=== PATIENT | male | born 1990 | race Caucasian/White ===

== ENCOUNTER 2017-05-18 18:36 | Emergency (ER) | payer MEDICAID ==
[2017-05-18] MEDS ORDERED: Diphtheria,Pertussis(Acell),Tetanus Vaccine 0.5 ML SDV IM ONE (19:11)
--- NOTE | 2017-05-18 19:15 | EDM.PDOC ---
ED HPI GENERAL MEDICAL PROBLEM - General Chief Complaint: Laceration Stated Complaint: CUT INDEX FINGER ON LEFT HAND Time Seen by Provider: 05/18/17 19:02 Source of Information: Reports: Patient History Limitations: Reports: No Limitations - History of Present Illness INITIAL COMMENTS - FREE TEXT/NARRATIVE: Patient presents to the E.D. complaining of laceration to the tip of the left index finger on the palmar side. States he cut it on a table saw yesterday. Bandaid in place all day. Decided today to be evaluated in the E.D. to see if sutures are required. Does not believe tetanus status is up to date. Pain is minimal. Denies any n/t. He has no other complaints. - Related Data Allergies Allergy/AdvReac Type Severity Reaction Status Date / Time Penicillins Allergy Cannot Verified 05/18/17 18:47 Remember Home Meds: Home Meds Citalopram [Citalopram HBr] 20 mg PO DAILY 05/18/17 [History] buPROPion [Wellbutrin] 75 mg PO BEDTIME 05/18/17 [History] Past Medical History HEENT History: Reports: Impaired Vision Other HEENT History: wears corrective lenses Psychiatric History: Reports: Anxiety, Depression Social & Family History - Tobacco Use Smoking Status *Q: Current Every Day Smoker Years of Tobacco use: 5 Packs/Tins Daily: 1 Used Tobacco, but Quit: No Second Hand Smoke Exposure: No - Caffeine Use Caffeine Use: Reports: Coffee - Recreational Drug Use Recreational Drug Use: No ED ROS GENERAL - Review of Systems Review Of Systems: ROS reveals no pertinent complaints other than HPI. ED EXAM, SKIN/RASH Exam: See Below Exam Limited By: No Limitations General Appearance: Alert, WD/WN, No Apparent Distress Ears: Hearing Grossly Normal Nose: Normal Inspection Throat/Mouth: Normal Voice, No Airway Compromise Neck: Normal Inspection, Supple Respiratory/Chest: No Respiratory Distress, No Accessory Muscle Use Cardiovascular: Normal Peripheral Pulses, Regular Rate, Rhythm Peripheral Pulses: 4+: Radial (L) Neurological: Alert, Oriented, CN II-XII Intact, Normal Cognition, No Motor/ Sensory Deficits Psychiatric: Normal Affect, Normal Mood Skin: Warm, Dry, Normal Color Course - Vital Signs Last Recorded V/S: Last Vital Signs Temp 97.8 F 05/18/17 18:45 Pulse 87 05/18/17 18:45 Resp 18 05/18/17 18:45 BP 121/76 05/18/17 18:45 Pulse Ox 100 05/18/17 18:45 - Orders/Labs/Meds Orders: Active Orders 24 hr Category Date Time Status Vaccines to be Administered [RC] PER UNIT ROUTINE Care 05/18/17 19:11 Active Fingers Second Digit Lt F1 [CR] Stat Exams 05/18/17 19:07 Taken Meds: Medications Discontinued Medications Generic Name Dose Route Start Last Admin Trade Name Keaton PRN Reason Stop Dose Admin Diphtheria/Tetanus/Acell Pertussis 0.5 ml 05/18/17 19:11 05/18/17 19:40 Adacel IM 05/18/17 19:12 0.5 ml .ONCE ONE Administration - Re-Assessments/Exams Free Text/Narrative Re-Assessment/Exam: Ordered x-ray of the left index finger and adacel IM. X-ray of the finger reviewed: no apparent bony involvement noted. No closure required. Will have to heel by secondary intentions. Will discharge patient home after dressing applied. Departure - Departure Time of Disposition: 19:54 Disposition: Home, Self-Care 01 Condition: Good Clinical Impression: Laceration of finger Qualifiers: Encounter type: initial encounter Finger: index finger Damage to nail status: without damage Foreign body presence: without foreign body Laterality: left Qualified Code(s): S61.211A - Laceration without foreign body of left index finger without damage to nail, initial encounter - Discharge Information Instructions: Laceration Care, Adult, [id number] Referrals: Larry Mtz MD [Primary Care Provider] - Forms: ED Department Discharge Additional Instructions: Cleanse site twice daily soap and water, pat dry, reapply triple antibiotic ointment and dressing. Laceration will have to heal by secondary intentions from the inside out. This may take a couple weeks. Do not soak wound. Keep it clean and dry. Return to the E.D. if you develop any new or worsening symptoms. - My Orders Last 24 Hours: My Active Orders 05/18/17 19:07 Fingers Second Digit Lt F1 [CR] Stat 05/18/17 19:11 Vaccines to be Administered [RC] PER UNIT ROUTINE - Assessment/Plan Last 24 Hours: My Active Orders 05/18/17 19:07 Fingers Second Digit Lt F1 [CR] Stat 05/18/17 19:11 Vaccines to be Administered [RC] PER UNIT ROUTINE
--- NOTE | 2017-05-19 06:59 | CR ---
Left second finger: Four views of left second finger were obtained. Comparison: No previous study. Joint spaces are preserved. No fracture, dislocation or other bony abnormality is seen. No opaque foreign object is seen. Impression: 1. No bony abnormality is identified on four-view left second finger study. Diagnostic code #1
== END 2017-05-18 20:00 | disposition home or self-care (01) ==
LOC: JD.ED 18:36
DX: S61.211A Laceration without foreign body of left index finger without damage to nail, initial encounter (principal); F17.210 Nicotine dependence, cigarettes, uncomplicated; Z88.0 Allergy status to penicillin; Z79.899 Other long term (current) drug therapy; W27.0XXA Contact with workbench tool, initial encounter
CPT/HCPCS: 73140-26-F1; 73140-F1; 90471; 90715; 99283; 99283-25